=== PATIENT | female | born 1955 | race African-American/Black ===

== ENCOUNTER 2019-03-09 11:13 | Day surgery (SDC) | payer OTHER ==
[2019-03-09] MEDS ORDERED: BISACODYL 10 MG SUPP PR (12:00)
[2019-03-09] MEDS ORDERED: ONDANSETRON 4 MG INJ IV (13:00)
[2019-03-09] MEDS ORDERED: LIDOCAINE 2% (SDV) 5 ML INJ (13:01)
[2019-03-09] MEDS ORDERED: MIDAZOLAM 1 MG/ML 2 ML INJ (13:01)
[2019-03-09] MEDS ORDERED: PROPOFOL 40 ML (13:01)
== END 2019-03-09 15:21 | disposition home or self-care (01) ==
LOC: GIL 11:13
DX: Z12.11 Encounter for screening for malignant neoplasm of colon (principal); K64.8 Other hemorrhoids; K57.30 Diverticulosis of large intestine without perforation or abscess without bleeding; I10 Essential (primary) hypertension
CPT/HCPCS: 45378